=== PATIENT | male | born 2005 | race Caucasian/White ===

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

== ENCOUNTER 2024-12-04 07:03 | Emergency (ER) | payer MEDICAID, SELFPAY ==
[2024-12-04 07:08] VITALS: BP 148/83; PULSE 84; RESP 18; TEMP 36.7; O2SAT 100; BMI 34.0
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
[2024-12-04] MEDS: tetanus-dipt-pertussis 0.5 mL SDV IM (07:34)
[2024-12-04] MEDS: lidocaine-epi 1% 20 mL INJ INJECTION (07:34)
[2024-12-04] MEDS: ondansetron 2 mg/ML SDV 2 mL 4 MG IVP (08:40)
[2024-12-04] MEDS: HYDROmorphone 0.5 MG/0.5 ML INJ 1 MG IVP (08:42)
[2024-12-04] MEDS: ceFAZolin 2,000 mg SDV 2000 MG IVP (08:44)
[2024-12-04 08:50] VITALS: O2SAT 85
[2024-12-04 08:52] VITALS: BP 119/80; PULSE 70; O2SAT 92
--- NOTE | 2024-12-04 09:18 | PC.NURSE ---
removed 2L NC, pt 98% on room air
[2024-12-04 09:19] VITALS: BP 119/60; PULSE 80; O2SAT 98
== END 2024-12-04 09:40 | disposition home or self-care (01) ==
PROVIDERS: Emergency Provider Emergency Medicine
DX: S22.070A Wedge compression fracture of T9-T10 vertebra, initial encounter for closed fracture (principal); S41.112A Laceration without foreign body of left upper arm, initial encounter; V89.2XXA Person injured in unspecified motor-vehicle accident, traffic, initial encounter
CPT/HCPCS: 12002; 70450; 72125; 72128; 72131; 90715; 96374; 96375; 99285; 99291; J0690; J1171; J2405; J9999

== ENCOUNTER → 2024-12-16 13:46 | Outpatient (BNVA) | payer MEDICAID, SELFPAY | PROVIDERS: Visit Provider Orthopaedic Surgery | DX: S22.070A Wedge compression fracture of T9-T10 vertebra, initial encounter for closed fracture (principal); V49.40XA Driver injured in collision with unspecified motor vehicles in traffic accident, initial encounter | CPT/HCPCS: 72072 ==